=== PATIENT | male | born 1945 | race Native Hawaiian/Other Pacific Islander ===

== ENCOUNTER 2020-01-29 01:05 | Inpatient (IN) | payer OTHER ==
[2020-01-29] VITALS (23 sets, daily range): BP systolic 123–169; BP diastolic 62–90; TEMP 97.2–98.7; Ht 182.9 cm; Wt 83.7 kg
[~2020-01-29] VITALS: Ht 182.9 cm; Wt 83.7 kg
[2020-01-29 09:50] LABS: PLATELET COUNT 276 K/uL (142-355)
[2020-01-29 10:02] LABS: POTASSIUM 3.6 mmol/L (3.6-5.2)
[2020-01-30] VITALS (25 sets, daily range): BP systolic 135–177; BP diastolic 62–94; TEMP 97.7–100.3
[2020-01-30 12:34] LABS: POTASSIUM 4.1 mmol/L (3.6-5.2)
[2020-01-31] VITALS (21 sets, daily range): BP systolic 130–1150; BP diastolic 65–88; TEMP 97.8–99.3
[2020-01-31 06:04] LABS: POTASSIUM 4.1 mmol/L (3.6-5.2)
[2020-02-01] VITALS (22 sets, daily range): BP systolic 135–175; BP diastolic 66–97; TEMP 97.3–98.7
[2020-02-01 05:54] LABS: POTASSIUM 4.7 mmol/L (3.6-5.2)
[2020-02-02] VITALS (14 sets, daily range): BP systolic 72–151; BP diastolic 33–95; TEMP 98.6–99.1
[2020-02-02 05:45] LABS: POTASSIUM 4.8 mmol/L (3.6-5.2)
== END 2020-02-02 11:38 | disposition expired | DRG 177 ==
LOC: PCU 01:05
PROVIDERS: ADMIT Internal Medicine
DX: U07.1 COVID-19 (principal); J96.00 Acute respiratory failure, unspecified whether with hypoxia or hypercapnia; I46.9 Cardiac arrest, cause unspecified; F41.8 Other specified anxiety disorders; I95.89 Other hypotension
CPT/HCPCS: 36415; 36416; 36600; 80053; 82805; 85027; 92950; 94640; 94664; 94667; 94668; 94760; J0171; J0456; J1100; J1650; J1940; J2060; J2270; J2310; J3490